=== PATIENT | male | born 1960 | race African-American/Black ===

== ENCOUNTER 2019-11-05 11:15 | Inpatient (IN) ==
[2019-11-05 13:13] LABS: Basophils % 0.2 % (0.0-0.8); Hematocrit 31.1 VOL% (42.0-52.0); Hemoglobin 9.9 GM/DL (14.0-18.0); Immature Granulocytes % 0.7 %; Lymphocytes # 1.3 10*3/uL (1.4-4.0); Lymphocytes % 9.4 % (21.2-54.2); Mean Corpuscular HGB Conc 31.8 GM/DL (32-36); Mean Corpuscular Volume 86.9 FL (87-102); Mean Platelet Volume 10.2 FL (9.6-12.0); Monocytes % 8.8 % (1.7-12.7); Neutrophils % 80.9 % (38.7-73.9); Platelet Count 252 T/CUMM (130-400); Red Blood Count 3.58 MC/CUMM (3.8-5.5); Red Cell Distribution Width 16.5 % (9.3-17.3); White Blood Count 13.8 T/CUMM (4-12)
[2019-11-05 13:33] LABS: Bilirubin,Total 1.1 MG/DL (0.2-1.0); Osmolality,Calculated 295.7 MOS/KG (273-304); Total Protein 7.8 G/DL (6.4-8.3)
[2019-11-05] MEDS ORDERED: SODIUM CHLORIDE 0.9% 1,000 ML IV STA (14:25)
[2019-11-05] MEDS ORDERED: DEXTROSE 10% 25 GM/250 ML BAG IV PRN (15:54)
[2019-11-05] MEDS ORDERED: GLUCAGON 1 MG VIAL IM PRN (15:54)
[2019-11-05] MEDS ORDERED: ZALEPLON 5 MG CAPSULE PO PRN (15:54)
[2019-11-05] MEDS ORDERED: DOCUSATE SODIUM 100 MG CAPSULE PO PRN (15:54)
[2019-11-05] MEDS ORDERED: OLMESARTAN AMLODIPIN HCTHIAZID PO SCH (16:45)
[2019-11-05] MEDS ORDERED: ACETAMINOPHEN CODEINE PO SCH (16:45)
[2019-11-05] MEDS ORDERED: PANTOPRAZOLE 40 MG TABLET PO SCH (17:00)
[2019-11-05] MEDS ORDERED: GABAPENTIN 300 MG CAPSULE PO SCH (17:00)
[2019-11-05] MEDS: PIPERACILLIN/TAZOBACTAM 3,375 MG in SODIUM CHLORIDE 0.9% 100 ML IV SCH (18:01)
[2019-11-05 18:05] LABS: Apearance,Urine CLEAR (Clear); Bacteria,Urine Occasional /HPF (Few); Bilirubin,Urine Negative (Negative); Blood, Urine Negative (Negative); Glucose,Urine (UA) Negative (Negative); Hyaline Casts,Urine 33 /LPF (0-3); Ketones,Urine Negative (Negative); Mucus,Urine Occasional /LPF (Occasional); Nitrite,Urine Negative (Negative); Protein,Urine Negative; RBC,Urine 5 /HPF (0-4); Squamous Epithelial Cell,Urine Occasional /HPF (0-10); Urine Color Yellow (Yellow); Urine Specific Gravity 1.013 (1.001-1.035); Urine Urobilinogen < 2.0 EU/DL (0.2-1.0); WBC,Urine 2 /HPF (0-6)
[2019-11-05] MEDS: SODIUM CHLORIDE 0.9% 1,000 ML IV SCH (18:33)
[2019-11-05] MEDS: INSULIN REGULAR 100 UNIT/ML SUBCUT SCH ×2 (18:41→20:56)
[2019-11-05] MEDS: cloNIDine 0.1 MG TABLET PO SCH (18:46)
[2019-11-05] MEDS: NEBIVOLOL 10 MG TABLET PO SCH (18:46)
[2019-11-05] MEDS: ATORVASTATIN 20 MG TABLET PO SCH (18:46)
[2019-11-05] MEDS: GLIMEPIRIDE 4 MG TABLET PO SCH (18:46)
[2019-11-05] MEDS: ALBUTEROL 2.5 MG/3 ML NEB RESP TX SCH (19:40)
[2019-11-05] MEDS: ONDANSETRON 4 MG/2 ML VIAL IV PRN (20:09)
[2019-11-05] MEDS: ACETAMINOPHEN 325 MG TABLET PO PRN (20:54)
[2019-11-05] MEDS: FUROSEMIDE 20 MG/2 ML VIAL IV SCH (20:56)
[2019-11-05] MEDS: FONDAPARINUX 2.5 MG/0.5 ML SYRINGE SUBCUT SCH (20:57)
[2019-11-05] MEDS: CYCLOBENZAPRINE 10 MG TABLET PO SCH (21:02)
[2019-11-06] MEDS: PIPERACILLIN/TAZOBACTAM 3,375 MG in SODIUM CHLORIDE 0.9% 100 ML IV SCH ×3 (00:28→16:26)
[2019-11-06] MEDS: ALBUTEROL 2.5 MG/3 ML NEB RESP TX SCH ×4 (01:19→19:08)
[2019-11-06 06:21] LABS: Basophils % 0.2 % (0.0-0.8); Eosinophils % 0.1 % (0.00-10.9); Hemoglobin 9.6 GM/DL (14.0-18.0); Immature Granulocytes % 0.8 %; Immature Granulocytes Absolute 0.09 #; Lymphocytes # 1.2 10*3/uL (1.4-4.0); Lymphocytes % 10.2 % (21.2-54.2); Mean Corpuscular Volume 84.7 FL (87-102); Mean Platelet Volume 10.6 FL (9.6-12.0); Monocytes % 12.4 % (1.7-12.7); Neutrophils % 76.3 % (38.7-73.9); Platelet Count 235 T/CUMM (130-400); Red Blood Count 3.54 MC/CUMM (3.8-5.5); Red Cell Distribution Width 16.5 % (9.3-17.3); White Blood Count 11.6 T/CUMM (4-12)
[2019-11-06 06:31] LABS: Calcium 9.1 MG/DL (8.5-10.1); Osmolality,Calculated 294.2 MOS/KG (273-304); Risk Ratio 2.32; VLDL CHOLESTEROL 15.6 MG/DL
[2019-11-06] MEDS ORDERED: FUROSEMIDE 80 MG TABLET PO SCH (08:00)
[2019-11-06] MEDS: INSULIN REGULAR 100 UNIT/ML SUBCUT SCH ×4 (08:58→21:16)
[2019-11-06] MEDS: FUROSEMIDE 20 MG/2 ML VIAL IV SCH (08:58)
[2019-11-06] MEDS ORDERED: GABAPENTIN 600 MG TABLET PO SCH (09:00)
[2019-11-06] MEDS ORDERED: LOSARTAN 50 MG TABLET PO SCH (09:00)
[2019-11-06] MEDS ORDERED: COLCHICINE 0.6 MG CAPSULE PO SCH ×2 (09:00→09:58)
[2019-11-06 09:26] LABS: % Iron Saturation 5.8 % (18-50)
[2019-11-06] MEDS: cloNIDine 0.1 MG TABLET PO SCH (10:02)
[2019-11-06] MEDS: GLIMEPIRIDE 4 MG TABLET PO SCH (10:02)
[2019-11-06] MEDS: ASPIRIN EC 81 MG TABLET PO SCH (10:02)
[2019-11-06] MEDS: ATORVASTATIN 20 MG TABLET PO SCH (10:02)
[2019-11-06] MEDS: PIOGLITAZONE 15 MG TABLET PO SCH (10:02)
[2019-11-06] MEDS: NEBIVOLOL 10 MG TABLET PO SCH (10:02)
[2019-11-06] MEDS: CYCLOBENZAPRINE 10 MG TABLET PO SCH ×3 (10:02→21:05)
[2019-11-06] MEDS: INSULIN GLARGINE 100 UNIT/ML SUBCUT SCH ×2 (10:03→21:06)
[2019-11-06] MEDS ORDERED: DEXTROSE 10% 250 ML BAG IV PRN (10:05)
[2019-11-06] MEDS: ACETAMINOPHEN 325 MG TABLET PO PRN ×2 (12:30→16:25)
[2019-11-06] MEDS ORDERED: ACETAMINOPHEN/CODEINE 300-30 MG TABLET PO PRN (20:46)
[2019-11-06] MEDS: GABAPENTIN 300 MG CAPSULE PO SCH (21:05)
[2019-11-06] MEDS: FONDAPARINUX 2.5 MG/0.5 ML SYRINGE SUBCUT SCH (21:05)
[2019-11-06] MEDS: ACETAMINOPHEN CODEINE PO PRN (21:12)
[2019-11-07] MEDS: ACETAMINOPHEN 325 MG TABLET PO PRN ×3 (00:16→20:35)
[2019-11-07] MEDS: PIPERACILLIN/TAZOBACTAM 3,375 MG in SODIUM CHLORIDE 0.9% 100 ML IV SCH (01:03)
[2019-11-07] MEDS: ALBUTEROL 2.5 MG/3 ML NEB RESP TX SCH ×4 (01:23→19:39)
[2019-11-07 09:24] LABS: Basophils % 0.3 % (0.0-0.8); Eosinophils # 0.2 10*3/uL (0.0-0.87); Eosinophils % 1.6 % (0.00-10.9); Hematocrit 30.5 VOL% (42.0-52.0); Hemoglobin 9.5 GM/DL (14.0-18.0); Immature Granulocytes % 0.7 %; Immature Granulocytes Absolute 0.09 #; Lymphocytes # 1.8 10*3/uL (1.4-4.0); Lymphocytes % 15.1 % (21.2-54.2); Mean Corpuscular HGB Conc 31.1 GM/DL (32-36); Mean Corpuscular Volume 86.6 FL (87-102); Mean Platelet Volume 10.5 FL (9.6-12.0); Monocytes % 13.5 % (1.7-12.7); Neutrophils % 68.8 % (38.7-73.9); Platelet Count 249 T/CUMM (130-400); Red Blood Count 3.52 MC/CUMM (3.8-5.5); Red Cell Distribution Width 16.5 % (9.3-17.3); White Blood Count 12.2 T/CUMM (4-12)
[2019-11-07 09:30] LABS: Calcium 9.5 MG/DL (8.5-10.1); Osmolality,Calculated 305.2 MOS/KG (273-304)
[2019-11-07] MEDS: NEBIVOLOL 10 MG TABLET PO SCH (10:27)
[2019-11-07] MEDS: cloNIDine 0.1 MG TABLET PO SCH (10:28)
[2019-11-07] MEDS: PIOGLITAZONE 15 MG TABLET PO SCH (10:28)
[2019-11-07] MEDS: CYCLOBENZAPRINE 10 MG TABLET PO SCH ×3 (10:28→20:36)
[2019-11-07] MEDS: ASPIRIN EC 81 MG TABLET PO SCH (10:28)
[2019-11-07] MEDS: ATORVASTATIN 20 MG TABLET PO SCH (10:28)
[2019-11-07] MEDS: GLIMEPIRIDE 4 MG TABLET PO SCH (10:28)
[2019-11-07] MEDS: INSULIN REGULAR 100 UNIT/ML SUBCUT SCH ×4 (10:29→21:13)
[2019-11-07] MEDS: INSULIN GLARGINE 100 UNIT/ML SUBCUT SCH ×2 (10:29→21:14)
[2019-11-07] MEDS: CEFEPIME 1,000 MG in SODIUM CHLORIDE 0.9% 100 ML IV SCH ×3 (10:30→20:34)
[2019-11-07] MEDS: SODIUM CHLORIDE 0.9% 1,000 ML IV SCH (10:30)
[2019-11-07] MEDS ORDERED: VANCOMYCIN INJ 2,500 MG in SODIUM CHLORIDE 0.9% 500 ML IV SCH (12:00)
[2019-11-07] MEDS: FONDAPARINUX 2.5 MG/0.5 ML SYRINGE SUBCUT SCH (20:36)
[2019-11-07] MEDS: GABAPENTIN 300 MG CAPSULE PO SCH (20:36)
[2019-11-08] MEDS: ALBUTEROL 2.5 MG/3 ML NEB RESP TX SCH ×4 (01:00→19:03)
[2019-11-08] MEDS: CEFEPIME 1,000 MG in SODIUM CHLORIDE 0.9% 100 ML IV SCH ×4 (03:50→20:54)
[2019-11-08 05:29] LABS: Basophils % 0.4 % (0.0-0.8); Eosinophils # 0.4 10*3/uL (0.0-0.87); Eosinophils % 3.3 % (0.00-10.9); Hematocrit 27.1 VOL% (42.0-52.0); Hemoglobin 8.4 GM/DL (14.0-18.0); Lymphocytes # 1.6 10*3/uL (1.4-4.0); Lymphocytes % 15.7 % (21.2-54.2); Mean Platelet Volume 10.2 FL (9.6-12.0); Monocytes % 15.4 % (1.7-12.7); Neutrophils % 64.2 % (38.7-73.9); Platelet Count 238 T/CUMM (130-400); Red Blood Count 3.15 MC/CUMM (3.8-5.5); Red Cell Distribution Width 16.5 % (9.3-17.3); White Blood Count 10.5 T/CUMM (4-12)
[2019-11-08 05:55] LABS: Calcium 9.2 MG/DL (8.5-10.1); Osmolality,Calculated 302.1 MOS/KG (273-304)
[2019-11-08] MEDS: SODIUM CHLORIDE 0.9% 1,000 ML IV SCH (06:13)
[2019-11-08] MEDS: INSULIN REGULAR 100 UNIT/ML SUBCUT SCH ×4 (07:49→20:57)
[2019-11-08] MEDS: INSULIN GLARGINE 100 UNIT/ML SUBCUT SCH ×2 (09:02→20:56)
[2019-11-08] MEDS: ASPIRIN EC 81 MG TABLET PO SCH (09:03)
[2019-11-08] MEDS: CYCLOBENZAPRINE 10 MG TABLET PO SCH ×3 (09:03→20:55)
[2019-11-08] MEDS: GLIMEPIRIDE 4 MG TABLET PO SCH (09:03)
[2019-11-08] MEDS: NEBIVOLOL 10 MG TABLET PO SCH (09:03)
[2019-11-08] MEDS: cloNIDine 0.1 MG TABLET PO SCH (09:03)
[2019-11-08] MEDS: PIOGLITAZONE 15 MG TABLET PO SCH (09:03)
[2019-11-08] MEDS: ATORVASTATIN 20 MG TABLET PO SCH (09:04)
[2019-11-08] MEDS: GABAPENTIN 300 MG CAPSULE PO SCH (20:55)
[2019-11-08] MEDS: FONDAPARINUX 2.5 MG/0.5 ML SYRINGE SUBCUT SCH (20:56)
[2019-11-09] MEDS: ALBUTEROL 2.5 MG/3 ML NEB RESP TX SCH ×4 (00:06→19:27)
[2019-11-09] MEDS: CEFEPIME 1,000 MG in SODIUM CHLORIDE 0.9% 100 ML IV SCH (03:17)
[2019-11-09] MEDS: SODIUM CHLORIDE 0.9% 1,000 ML IV SCH ×3 (03:40→23:29)
[2019-11-09 06:43] LABS: Basophils % 0.3 % (0.0-0.8); Eosinophils # 0.3 10*3/uL (0.0-0.87); Eosinophils % 2.4 % (0.00-10.9); Hematocrit 24.9 VOL% (42.0-52.0); Immature Granulocytes % 0.9 %; Lymphocytes # 1.9 10*3/uL (1.4-4.0); Lymphocytes % 17.1 % (21.2-54.2); Mean Corpuscular HGB Conc 32.1 GM/DL (32-36); Mean Corpuscular Volume 83.6 FL (87-102); Mean Platelet Volume 10.7 FL (9.6-12.0); Monocytes % 11.3 % (1.7-12.7); Platelet Count 257 T/CUMM (130-400); Red Blood Count 2.98 MC/CUMM (3.8-5.5); Red Cell Distribution Width 16.7 % (9.3-17.3); White Blood Count 11.3 T/CUMM (4-12)
[2019-11-09 06:55] LABS: Calcium 9.2 MG/DL (8.5-10.1); Osmolality,Calculated 299.8 MOS/KG (273-304)
[2019-11-09] MEDS ORDERED: CLINDAMYCIN INJ 600 MG in PREMIX 1 EACH IV SCH (08:30)
[2019-11-09] MEDS: INSULIN REGULAR 100 UNIT/ML SUBCUT SCH ×4 (08:33→20:13)
[2019-11-09] MEDS ORDERED: TRULICITY SUBCUT SCH (09:00)
[2019-11-09] MEDS: PIOGLITAZONE 15 MG TABLET PO SCH (09:49)
[2019-11-09] MEDS: ASPIRIN EC 81 MG TABLET PO SCH (09:49)
[2019-11-09] MEDS: GLIMEPIRIDE 4 MG TABLET PO SCH (09:49)
[2019-11-09] MEDS: NEBIVOLOL 10 MG TABLET PO SCH (09:49)
[2019-11-09] MEDS: ATORVASTATIN 20 MG TABLET PO SCH (09:49)
[2019-11-09] MEDS: cloNIDine 0.1 MG TABLET PO SCH (09:50)
[2019-11-09] MEDS: INSULIN GLARGINE 100 UNIT/ML SUBCUT SCH ×2 (09:50→20:14)
[2019-11-09] MEDS: CYCLOBENZAPRINE 10 MG TABLET PO SCH ×3 (09:50→21:01)
[2019-11-09] MEDS: LACTOBACILLUS ACIDOPHILUS/BULGARICUS CHEW TABLET PO SCH ×2 (10:45→21:00)
[2019-11-09] MEDS ORDERED: VANCOMYCIN INJ 2,000 MG in SODIUM CHLORIDE 0.9% 500 ML IV SCH (12:00)
[2019-11-09] MEDS: GABAPENTIN 300 MG CAPSULE PO SCH (21:01)
[2019-11-09] MEDS: FONDAPARINUX 2.5 MG/0.5 ML SYRINGE SUBCUT SCH (21:02)
[2019-11-09] MEDS: ACETAMINOPHEN 325 MG TABLET PO PRN (23:30)
[2019-11-10] MEDS: ALBUTEROL 2.5 MG/3 ML NEB RESP TX SCH ×4 (00:14→19:24)
[2019-11-10 08:00] LABS: Basophils % 0.3 % (0.0-0.8); Eosinophils # 0.3 10*3/uL (0.0-0.87); Eosinophils % 2.3 % (0.00-10.9); Hematocrit 25.3 VOL% (42.0-52.0); Hemoglobin 8.3 GM/DL (14.0-18.0); Immature Granulocytes Absolute 0.24 #; Lymphocytes # 2.3 10*3/uL (1.4-4.0); Lymphocytes % 19.1 % (21.2-54.2); Mean Corpuscular HGB Conc 32.8 GM/DL (32-36); Mean Corpuscular Volume 81.9 FL (87-102); Mean Platelet Volume 10.1 FL (9.6-12.0); Monocytes % 11.9 % (1.7-12.7); Neutrophils % 64.4 % (38.7-73.9); Platelet Count 293 T/CUMM (130-400); Red Blood Count 3.09 MC/CUMM (3.8-5.5); Red Cell Distribution Width 16.7 % (9.3-17.3); White Blood Count 11.9 T/CUMM (4-12)
[2019-11-10] MEDS: INSULIN REGULAR 100 UNIT/ML SUBCUT SCH ×4 (08:15→21:07)
[2019-11-10] MEDS: INSULIN GLARGINE 100 UNIT/ML SUBCUT SCH ×2 (08:16→21:04)
[2019-11-10 08:23] LABS: Calcium 9.7 MG/DL (8.5-10.1); Osmolality,Calculated 298.8 MOS/KG (273-304)
[2019-11-10] MEDS: GLIMEPIRIDE 4 MG TABLET PO SCH (08:41)
[2019-11-10] MEDS: ASPIRIN EC 81 MG TABLET PO SCH (08:41)
[2019-11-10] MEDS: PIOGLITAZONE 15 MG TABLET PO SCH (08:41)
[2019-11-10] MEDS: cloNIDine 0.1 MG TABLET PO SCH (08:42)
[2019-11-10] MEDS: NEBIVOLOL 10 MG TABLET PO SCH (08:42)
[2019-11-10] MEDS: CYCLOBENZAPRINE 10 MG TABLET PO SCH ×3 (08:42→21:04)
[2019-11-10] MEDS: LACTOBACILLUS ACIDOPHILUS/BULGARICUS CHEW TABLET PO SCH ×2 (08:43→21:04)
[2019-11-10] MEDS: ACETAMINOPHEN 325 MG TABLET PO PRN (08:49)
[2019-11-10] MEDS: SODIUM CHLORIDE 0.9% 1,000 ML IV SCH (19:30)
[2019-11-10] MEDS: ACETAMINOPHEN CODEINE PO PRN (19:50)
[2019-11-10] MEDS: ONDANSETRON 4 MG/2 ML VIAL IV PRN (19:50)
[2019-11-10] MEDS: FONDAPARINUX 2.5 MG/0.5 ML SYRINGE SUBCUT SCH (21:04)
[2019-11-10] MEDS: GABAPENTIN 300 MG CAPSULE PO SCH (21:04)
[2019-11-11] MEDS: ALBUTEROL 2.5 MG/3 ML NEB RESP TX SCH ×4 (00:42→21:10)
[2019-11-11 05:51] LABS: Basophils % 0.3 % (0.0-0.8); Eosinophils # 0.4 10*3/uL (0.0-0.87); Eosinophils % 3.6 % (0.00-10.9); Hematocrit 25.3 VOL% (42.0-52.0); Hemoglobin 8.1 GM/DL (14.0-18.0); Immature Granulocytes % 2.7 %; Immature Granulocytes Absolute 0.31 #; Lymphocytes # 1.9 10*3/uL (1.4-4.0); Lymphocytes % 16.5 % (21.2-54.2); Mean Corpuscular Volume 84.3 FL (87-102); Mean Platelet Volume 9.9 FL (9.6-12.0); Monocytes % 11.4 % (1.7-12.7); Neutrophils % 65.5 % (38.7-73.9); Platelet Count 330 T/CUMM (130-400); Red Cell Distribution Width 16.4 % (9.3-17.3); White Blood Count 11.5 T/CUMM (4-12)
[2019-11-11 06:16] LABS: Calcium 10.1 MG/DL (8.5-10.1); Osmolality,Calculated 296.4 MOS/KG (273-304)
[2019-11-11] MEDS: SODIUM CHLORIDE 0.9% 1,000 ML IV SCH ×2 (09:02→15:34)
[2019-11-11] MEDS: INSULIN REGULAR 100 UNIT/ML SUBCUT SCH ×4 (09:02→21:58)
[2019-11-11] MEDS: INSULIN GLARGINE 100 UNIT/ML SUBCUT SCH ×2 (09:03→21:58)
[2019-11-11] MEDS: GLIMEPIRIDE 4 MG TABLET PO SCH (12:57)
[2019-11-11] MEDS: PIOGLITAZONE 15 MG TABLET PO SCH (12:57)
[2019-11-11] MEDS: ASPIRIN EC 81 MG TABLET PO SCH (13:01)
[2019-11-11] MEDS: NEBIVOLOL 10 MG TABLET PO SCH (13:01)
[2019-11-11] MEDS: CYCLOBENZAPRINE 10 MG TABLET PO SCH ×3 (13:02→22:04)
[2019-11-11] MEDS: cloNIDine 0.1 MG TABLET PO SCH (13:02)
[2019-11-11] MEDS: LACTOBACILLUS ACIDOPHILUS/BULGARICUS CHEW TABLET PO SCH ×2 (13:02→22:16)
[2019-11-11] MEDS: GABAPENTIN 300 MG CAPSULE PO SCH (21:59)
[2019-11-11] MEDS: FONDAPARINUX 2.5 MG/0.5 ML SYRINGE SUBCUT SCH (22:04)
[2019-11-12] MEDS: ALBUTEROL 2.5 MG/3 ML NEB RESP TX SCH ×4 (02:22→20:01)
[2019-11-12 06:42] LABS: Basophils % 0.2 % (0.0-0.8); Eosinophils # 0.3 10*3/uL (0.0-0.87); Eosinophils % 2.7 % (0.00-10.9); Hematocrit 23.9 VOL% (42.0-52.0); Hemoglobin 7.5 GM/DL (14.0-18.0); Immature Granulocytes % 2.5 %; Lymphocytes % 16.7 % (21.2-54.2); Mean Corpuscular HGB Conc 31.4 GM/DL (32-36); Mean Corpuscular Volume 85.1 FL (87-102); Neutrophils % 66.9 % (38.7-73.9); Platelet Count 372 T/CUMM (130-400); Red Blood Count 2.81 MC/CUMM (3.8-5.5); Red Cell Distribution Width 16.7 % (9.3-17.3); White Blood Count 12.1 T/CUMM (4-12)
[2019-11-12 07:08] LABS: Calcium 9.5 MG/DL (8.5-10.1); Osmolality,Calculated 292.4 MOS/KG (273-304)
[2019-11-12] MEDS: INSULIN REGULAR 100 UNIT/ML SUBCUT SCH ×4 (07:36→20:40)
[2019-11-12] MEDS ORDERED: SODIUM CHLORIDE 0.9% 1,000 ML IV SCH (09:00)
[2019-11-12] MEDS: NEBIVOLOL 10 MG TABLET PO SCH (10:10)
[2019-11-12] MEDS: ASPIRIN EC 81 MG TABLET PO SCH (10:10)
[2019-11-12] MEDS: GLIMEPIRIDE 4 MG TABLET PO SCH (10:10)
[2019-11-12] MEDS: PIOGLITAZONE 15 MG TABLET PO SCH (10:10)
[2019-11-12] MEDS: CYCLOBENZAPRINE 10 MG TABLET PO SCH ×3 (10:10→20:41)
[2019-11-12] MEDS: cloNIDine 0.1 MG TABLET PO SCH (10:10)
[2019-11-12] MEDS: LACTOBACILLUS ACIDOPHILUS/BULGARICUS CHEW TABLET PO SCH ×2 (10:11→20:41)
[2019-11-12] MEDS: INSULIN GLARGINE 100 UNIT/ML SUBCUT SCH ×2 (10:11→20:40)
[2019-11-12] MEDS ORDERED: LIDOCAINE 2% 5 ML VIAL ONE (12:05)
[2019-11-12] MEDS ORDERED: propofoL 200 MG/20 ML VIAL IV ONE (12:05)
[2019-11-12] MEDS ORDERED: MIDAZOLAM 2 MG/2 ML VIAL ONE (12:06)
[2019-11-12 13:49] LABS: Hematocrit 23.8 VOL% (42.0-52.0); Hemoglobin 7.5 GM/DL (14.0-18.0)
[2019-11-12] MEDS: SODIUM CHLORIDE 0.9% 1,000 ML IV SCH (17:19)
[2019-11-12] MEDS ORDERED: DEXTROSE 10% 250 ML BAG IV PRN (17:43)
[2019-11-12 20:15] LABS: Hematocrit 23.6 VOL% (42.0-52.0); Hemoglobin 7.5 GM/DL (14.0-18.0)
[2019-11-12] MEDS: ACETAMINOPHEN 325 MG TABLET PO PRN (20:40)
[2019-11-12] MEDS: FONDAPARINUX 2.5 MG/0.5 ML SYRINGE SUBCUT SCH (20:40)
[2019-11-12] MEDS: GABAPENTIN 300 MG CAPSULE PO SCH (20:41)
[2019-11-13] MEDS: ALBUTEROL 2.5 MG/3 ML NEB RESP TX SCH ×3 (01:36→12:46)
[2019-11-13] MEDS: SODIUM CHLORIDE 0.9% 1,000 ML IV SCH ×2 (08:38→10:13)
[2019-11-13] MEDS: INSULIN REGULAR 100 UNIT/ML SUBCUT SCH ×3 (08:38→16:27)
[2019-11-13] MEDS: cloNIDine 0.1 MG TABLET PO SCH (10:14)
[2019-11-13] MEDS: ASPIRIN EC 81 MG TABLET PO SCH (10:14)
[2019-11-13] MEDS: NEBIVOLOL 10 MG TABLET PO SCH (10:14)
[2019-11-13] MEDS: PIOGLITAZONE 15 MG TABLET PO SCH (10:14)
[2019-11-13] MEDS: LACTOBACILLUS ACIDOPHILUS/BULGARICUS CHEW TABLET PO SCH (10:14)
[2019-11-13] MEDS: INSULIN GLARGINE 100 UNIT/ML SUBCUT SCH (10:14)
[2019-11-13] MEDS: GLIMEPIRIDE 4 MG TABLET PO SCH (10:15)
[2019-11-13] MEDS: CYCLOBENZAPRINE 10 MG TABLET PO SCH ×2 (10:15→14:40)
[2019-11-13] MEDS ORDERED: ceFAZolin 2,000 MG in PREMIX 1 EACH IV SCH (13:30)
[2019-11-13 15:51] VITALS: BP 183/63
== END 2019-11-13 17:29 | disposition home or self-care (01) | DRG 872 ==
LOC: N.ED 11:15 → N.EDINP 15:54 → SUPCPDRO 15:54 → SUATTDRO 15:54 → N.EDINP 18:13 → N.2E 18:16
PROVIDERS: ADMIT Family Medicine; ATTEND Family Medicine